=== PATIENT | male | born 1990 | race Caucasian/White ===

== ENCOUNTER 2023-04-24 10:08 | Emergency (ER) | payer MEDICAID, SELFPAY ==
[2023-04-24 10:10] VITALS: BP 126/78; PULSE 64; RESP 14; TEMP 36.4; O2SAT 98; BMI 22.5
--- NOTE | 2023-04-24 10:55 | EDS_ITS ---
HPI HPI - Psych History of Present Illness Chief Complaint: Mental Health Narrative Narrative: 32-year-old male with history of anxiety and depression. Patient moved from [place] when he was younger. He had trouble fitting in. He has a history of psychiatric disease. He tells me today that he has been off of his medication since January of this year when he had his last appointment at [facility] in [place]. He states his physician is Dr. Ping Fallon. Patient states that he got an argument verbally with his today and the police were called and he states that they told him he could come to the emergency room to get his meds refilled. This is the only reason he is here. He has not homicidal or suicidal. Patient states he supposed to be on Azstarys which he states is like Adderall. [facility] Medical History (Updated 04/24/23 @ 10:58 by Jocelyn Watters) Mental health problem Allergy/AdvReac Type Severity Reaction Status Date / Time No Known Allergies Allergy Verified 04/24/23 10:10 Social History Smoking Status: Unknown if ever smoked ROS ROS ED Constitutional Constitutional ED: Denies chills, fever(s) or sweats Eyes Eyes: Denies blurry vision or change in vision ENT ENT ED: Denies ear pain or sore throat Cardiovascular Cardiovascular: Denies chest pain, palpitations or racing heartbeat Respiratory/Chest Respiratory/Chest: Denies cough, dyspnea or sputum Gastrointestinal Gastrointestinal: Denies abdominal pain, constipation, diarrhea, nausea or vomiting Genitourinary Genitourinary ED: Denies dysuria, hematuria or urinary frequency Musculoskeletal Musculoskeletal: Denies arthralgias, myalgias or neck pain Integumentary Denies abscess, Abrasions or rash Neurologic Neurologic: Denies headache(s), paresthesias or weakness Psychiatric Psychiatric: Reports anxiety and depression; Denies suicidal ideation or suicidal thoughts Endocrine Endocrinology: Denies polydipsia or polyuria EXAM Physical Exam Const Vital Signs: 04/24/23 10:10 Temperature 97.6 F L Temperature Source Temporal Pulse Rate 64 Respiratory Rate 14 Blood Pressure 126/78 H Blood Pressure Mean 94 Pulse Ox 98 Oxygen Delivery Method Room Air MDM MDM MDM Narrative Medical decision making narrative: Patient presenting for medication refill. He does have a history of anxiety and depression but is not homicidal or suicidal. He does not appear to be manic. His thoughts are clear. He was initially angry because I did tell him that his medication is a controlled substance and he would need appointments regularly to be able to keep taking this medication. I did call [facility] and I spoke to the nurse practitioner, Shraddha. She states that she can make an appointment for May 15 at 2:05 PM. She is unsure if the physicians there would be comfortable filling his medications because his primary doctor is out on maternity leave and they do not know him. He has been lost to follow-up for a few months as well. She states aside from a kidney appointment she will talk to the physicians at the practice and see if they can bridge him until he can make his April appointment. All this information was given to him. Patient will be discharged home in stable condition. Impression: 1. Anxiety 2. Depression Discharge Plan Triage Chief Complaint: Mental Health ED Provider: Choco Erazo Dx/Rx/DC Orders Instructions: Anxiety Disorders Tx, ED Depression Primary Care Provider: Care Physician,No Primary Referrals: Care Physician,No Primary [Primary Care Provider] - Disposition Disposition: Home, Self Care
--- NOTE | 2023-04-24 10:59 | CM.ED ---
Social Work SW reviewed presenting symptoms and needs with MD Erazo. reports scheduling an appointment with patient's psychiatrist in [place] for this week; patient denies SI/HI. SW to follow up with additional resources. SW met with patient and introduced self and role as [facility] SW. Patient standing beside bed and agreeable to speak with SW. SW engaged patient in conversation about recent events and needs. Patient explained he and his family recently moved to [place] from [place] and have been receiving assistance from a local confucianism. Patient explained he has been frustrated with his psychiatrist office due to lack of communication. SW reviewed local MH agencies as well as Crisis information. SW then reviewed [facility] resource list and briefly discussed [facility], [facility], [facility] and [facility]. Patient was receptive towards information and voices no other needs. SW encouraged patient to contact crisis to return to ED if symptoms worsen. Plan: psych follow up 04/27, community resources provided CARLOS Stewart
== END 2023-04-24 11:00 | disposition home or self-care (01) ==
PROVIDERS: Emergency Provider Student in an Organized Health Care Education/Training Program; Visit Provider Student in an Organized Health Care Education/Training Program
DX: F41.9 Anxiety disorder, unspecified (principal); F32.A Depression, unspecified
CPT/HCPCS: 99284

== ENCOUNTER → 2024-04-11 | Outpatient (CLI) | payer MEDICAID, SELFPAY ==
--- NOTE | 2024-04-11 12:43 | RAD_ITS ---
INDICATION: PAIN EXAMINATION/TECHNIQUE: X-RAY - XR Spine Lumbar 5 Views COMPARISON: No relevant prior comparison study available FINDINGS: VERTEBRAE: Preserved vertebral body height. No fracture. No spondylolisthesis. Preservation of the normal lumbar lordosis. No significant facet arthropathy. DISCS: Disc spaces are maintained. INCLUDED ABDOMEN: Included bowel gas pattern is non-obstructive. RAD/L/S Spine Min 4 Views IMPRESSION: No evidence of lumbar spinal fracture or spondylolisthesis. Electronically Signed: Lawson Mendenhall MD at 18:38 EDT ,
== END | disposition home or self-care (01) ==
PROVIDERS: PCP Psychiatry & Neurology Psychiatry; Referring Provider Chiropractor; Visit Provider Chiropractor
DX: S33.5XXA Sprain of ligaments of lumbar spine, initial encounter (principal)
CPT/HCPCS: 72110

== ENCOUNTER 2024-06-14 21:10 | Emergency (ER) | payer MEDICAID, SELFPAY ==
[2024-06-14 21:11] VITALS: BP 123/103; PULSE 83; RESP 18; TEMP 36.6; O2SAT 100; BMI 24.0
--- NOTE | 2024-06-14 23:41 | EX.ED.DYSGE1 ---
HPI History of Present Illness Chief Complaint: Anxiety Detail of Chief Complaint: Requesting medication refill Informant: patient Narrative Narrative: Patient presents the emergency department requesting a refill on his Cymbalta. Patient states that he ran out about a week ago. Patient states that he thought he had a refill on it and missed an appointment with his psychiatrist. Often times when he runs out he starts having symptoms of feeling anxious and some fleeting thoughts of self-harm. He has no plan on harming himself. He has been under increased stress and that he has an at home who is with her fourth child and is due in 8 days. He wants to get back on his medications. Patient does not feel like he needs to talk to crisis or need acute intervention. Also complaining of right lower dental pain that he has had for about a year but does not have dental insurance. Denies any fevers or chills or sweats. [facility] Medical History (Updated 06/14/24 @ 23:[address] Lawson Eisenberg, DO) Mental health problem Home Medications ?Medication ?Instructions ?Recorded ?Last Taken ?Type amoxicillin 500 mg tablet 500 mg PO TID #30 tabs 06/14/24 Unknown Rx duloxetine 60 mg capsule,delayed 60 mg PO BID #60 caps 06/14/24 Unknown Rx release (Cymbalta) Allergy/AdvReac Type Severity Reaction Status Date / Time No Known Allergies Allergy Verified 04/24/23 10:10 Social History Smoking Status: Unknown if ever smoked ROS ROS ED ROS Narrative Requesting medication refill Review of Systems ROS Unobtainable: other Constitutional Constitutional ED: Reports lethargy; Denies chills, fever(s), sweats or weight loss Eyes Eyes: Denies blurry vision, change in vision or diplopia ENT ENT ED: Reports other Details: Right lower dental pain ; Denies rhinorrhea or sore throat Cardiovascular Cardiovascular: Denies chest pain, orthopnea or racing heartbeat Respiratory/Chest Respiratory/Chest: Denies cough, dyspnea, dyspnea on exertion, orthopnea or sputum Gastrointestinal Gastrointestinal: Denies abdominal pain, diarrhea, nausea or vomiting Genitourinary Genitourinary ED: Denies dysuria, hematuria or urinary frequency Musculoskeletal Musculoskeletal: Denies arthralgias, back pain, myalgias or neck pain Integumentary Denies abscess, Abrasions or rash Neurologic Neurologic: Denies headache(s) or weakness Psychiatric Psychiatric: Denies anxiety, depression or suicidal thoughts Endocrine Endocrinology: Denies polydipsia, polyphagia or polyuria Hematologic/Lymphatic Hematologic/Lymphatic: Denies easy bleeding, easy bruising or lymphadenopathy Allergic/Immunologic Allergic/Immunologic ED: Denies mouth swelling, tongue swelling or urticaria EXAM Physical Exam Const Vital Signs: 06/14/24 21:11 Temperature 97.8 F Temperature Source Temporal Pulse Rate 83 Respiratory Rate 18 Blood Pressure 123/103 H Blood Pressure Mean 109 Pulse Ox 100 Oxygen Delivery Method Room Air Positive well nourished and well developed General Appearance ED: well developed and NAD HEENT Reports TM's clear and moist mucous membranes HEENT Narrative: Dentition-patient has a broken and carried tooth #31 tender to palpation. No gingival erythema or abscess noted. normocephalic and atraumatic; Negative for trauma or tenderness Tympanic Membrane ED: Yes TM's clear Eyes PERRL and EOMs intact bilaterally General Eye ED: Negative for pale conjunctiva or scleral icterus Neck no lymphadenopathy, supple and no JVD General: Negative for tenderness Chest Wall inspection of chest normal and palpation of chest normal Chest: Negative for tenderness Resp normal respiratory effort and clear to auscultation bilaterally Effort and Inspection: Negative for respiratory distress or pain with movement Auscultation: Negative for rhonchi, wheezes or diminished lung sounds Cardio regular rate, regular rhythm, S1 normal heart sound, S2 normal heart sound and no murmurs Peripheral Pulses: pulses 2+ throughout GI normal to inspection, nondistended, normoactive bowel sounds, soft to palpation, non-tender, non-distended and no masses Back/Spine no CVA tenderness and no thoracic nor lumbar tenderness Extremity normal to inspection General Extremety ED: Negative for edema General Extremity: Negative for edema Neuro oriented x3, CN's II-XII intact bilaterally, no sensory deficits noted and gait normal Sensorium / Orientation: awake, alert, oriented to person, oriented to place and oriented to time Motor Exam: strength 5/5 throughout and strength abnormal Psych mental status grossly normal Skin no rashes or lesions noted and no wounds MDM MDM MDM Narrative Medical decision making narrative: Patient presents requesting medication refill for Cymbalta. I did give him his first dose here and will write a prescription for Cymbalta 60 mg twice a day. He is advised to follow-up with psychiatrist. Patient also will be given a referral to dentist. Will start on amoxicillin. Discharge Plan Triage Chief Complaint: Anxiety Other Complaint: General Illness ED Provider: Lawson Eisenberg Dx/Rx/DC Orders Clinical Impression: Medication refill, Pain, dental Instructions: ED Anxiety Reaction, ED Dental Pain Prescriptions: New amoxicillin 500 mg tablet 500 mg PO TID Qty: 30 0RF duloxetine [Cymbalta] 60 mg capsule,delayed release(DR/EC) 60 mg PO BID Qty: 60 0RF Primary Care Provider: Toña Curiel Referrals: Toña Curiel MD [Primary Care Provider] - 3-5 Days Activity Restrictions/Additional Instructions: Follow-up with a dentist at the earliest possible time Print Language: Icelandic Disposition Disposition: Home, Self Care
[2024-06-14] MEDS: AMOXICILLIN 500 MG CAPSULE PO (23:58)
[2024-06-14] MEDS: DULoxetine Hcl 60 MG Capsule PO (23:58)
== END 2024-06-15 00:05 | disposition home or self-care (01) ==
PROVIDERS: Emergency Provider Emergency Medicine; PCP Psychiatry & Neurology Psychiatry; Visit Provider Emergency Medicine
DX: Z76.0 Encounter for issue of repeat prescription (principal); K08.89 Other specified disorders of teeth and supporting structures
CPT/HCPCS: 99284

== ENCOUNTER → 2025-02-18 | Outpatient (CLI) | payer MEDICAID, SELFPAY ==
--- NOTE | 2025-02-18 08:13 | RAD_ITS ---
EXAM: XR Lumbosacral Spine, 2 or 3 Views CLINICAL INDICATION: LOW BACK PAIN TECHNIQUE: Frontal and lateral views of the lumbar spine and sacrum. COMPARISON: No relevant prior studies available. FINDINGS: VERTEBRAE: Mild facet arthropathy L4-S1. Mild endplate degenerative changes of L1-S1. No acute fracture. Normal alignment. SACRUM/COCCYX: Unremarkable as visualized. No acute fracture. DISC SPACES: No acute findings. No significant narrowing. SOFT TISSUES: Unremarkable. RAD/Lumbar Spine 2 or 3 Views IMPRESSION: Degenerative changes as above. Reading [facility]
== END | disposition home or self-care (01) ==
LOC: RAD 08:09
DX: M54.50 Low back pain, unspecified (principal)
CPT/HCPCS: 72100